=== PATIENT | female | born 1985 | race African-American/Black ===

== ENCOUNTER 2016-04-07 22:39 | Emergency (ER) | payer MEDICAID ==
[2016-04-08] MEDS ORDERED: PREDNISONE 20 MG TABLET PO ONE (02:18)
[2016-04-08] MEDS ORDERED: IPRATROPIUM/ALBUTEROL 0.5-2.5 MG/3 ML AMPUL NEB ONE (02:18)
[2016-04-08] MEDS ORDERED: ALBUTEROL SULFATE HFA (90 MCG/PUFF) 8 GM MDI (1 MDI/ER DISP) IH ONE (03:24)
--- NOTE | 2016-04-08 03:28 | ER Document Report ---
ED General - General Chief Complaint: Sore Throat Stated Complaint: SORE THROAT/HEADACHE TRAVEL OUTSIDE OF THE [place] IN LAST 30 DAYS: No - HPI Patient complains to provider of: sore throat headache cough Notes: Patient coming in with above stated symptoms patient states she was treated for sinus infection before [place] with amoxicillin patient states symptoms are determined sore throat cough nasal congestion and headache. Patient denies any recent travel states multiple sick contacts with various illness and symptoms. Patient denies any other antibiotics. Patient does smoke approximate half pack to 1 pack day. Patient states she is still smoking and smoked prior to arrival to the ER. - Related Data Allergies/Adverse Reactions: No Known Allergies Allergy (Verified 04/08/16 02:22) Past Medical History - Social History Smoking Status: Current Every Day Smoker Cigarette use (# per day): Yes - 1/2 ppd Family History: Reviewed & Not Pertinent Psychiatric Medical History: Reports: Hx Anxiety, Hx Depression - Immunizations Hx Diphtheria, Pertussis, Tetanus Vaccination: Yes Review of Systems - Review of Systems Constitutional: No symptoms reported EENT: Sinus pressure, Throat pain Cardiovascular: No symptoms reported Respiratory: Cough Gastrointestinal: No symptoms reported Genitourinary: No symptoms reported Female Genitourinary: No symptoms reported Musculoskeletal: No symptoms reported Skin: No symptoms reported Hematologic/Lymphatic: No symptoms reported Neurological/Psychological: No symptoms reported -: Yes All other systems reviewed and negative Physical Exam - Vital signs Vitals: Temp Pulse Resp BP Pulse Ox 98.3 F 79 14 135/99 H 99 04/08/16 00:22 04/08/16 00:22 04/08/16 00:22 04/08/16 00:22 04/08/16 00:22 Interpretation: Normal - General General appearance: Appears well, Alert - HEENT Head: Normocephalic, Atraumatic Eyes: Normal Conjunctiva: Normal Cornea: Normal Extraocular movements intact: Yes Eyelashes: Normal Pupils: PERRL Ears: Normal External canal: Normal Tympanic membrane: Normal Sinus: Normal Nasal: Normal Mouth/Lips: Normal Pharynx: Erythema Neck: Normal - Respiratory Respiratory status: No respiratory distress Chest status: Nontender Breath sounds: Wheezing Chest palpation: Normal - Cardiovascular Rhythm: Regular Heart sounds: Normal auscultation Murmur: No - Abdominal Inspection: Normal Distension: No distension Bowel sounds: Normal Tenderness: Nontender Organomegaly: No organomegaly - Back Back: Normal, Nontender - Extremities General upper extremity: Normal inspection, Nontender, Normal color, Normal ROM , Normal temperature General lower extremity: Normal inspection, Nontender, Normal color, Normal ROM , Normal temperature, Normal weight bearing. No: Aiden's sign - Neurological Neuro grossly intact: Yes Cognition: Normal Orientation: AAOx4 [place] Coma Scale Eye Opening: Spontaneous [place] Coma Scale Verbal: Oriented [place] Coma Scale Motor: Obeys Commands [place] Coma Scale Total: 15 Speech: Normal Motor strength normal: LUE, RUE, LLE, RLE Sensory: Normal - Psychological Associated symptoms: Normal affect, Normal mood - Skin Skin Temperature: Warm Skin Moisture: Dry Skin Color: Normal Course - Re-evaluation Re-evalutation: 04/08/16 03:24 Rapid strep is negative. Patient did have wheezing on examination was given a DuoNeb. Breathing improved with improved DuoNeb. Patient will be treated symptomatically patient will be given steroids and albuterol inhaler. Patient will also be given Motrin for her pain. Patient will be discharged home follow- up PCP. - Vital Signs Vital signs: Temp Pulse Resp BP Pulse Ox 98.3 F 79 14 135/99 H 99 04/08/16 00:22 04/08/16 00:22 04/08/16 00:22 04/08/16 00:22 04/08/16 00:22 Discharge - Discharge Clinical Impression: Viral pharyngitis URI (upper respiratory infection) Qualifiers: URI type: unspecified URI Qualified Code(s): J06.9 - Acute upper respiratory infection, unspecified Disposition: HOME, SELF-CARE Instructions: Sore Throat ([facility]), Upper Respiratory Illness ([facility]) Additional Instructions: Take medication as prescribed. Please use the inhaler that we gave you here in ER 2 puffs every 4 hours for the next 5 days. Please stop smoking. Prescriptions: Ibuprofen [Motrin 600 Mg Tablet] 600 mg PO TID #30 tablet Loratadine/Pseudoephedrine Sul [Claritin-D 12 Hour Tablet] 1 each PO BID #20 tab.sr.12h Prednisone [Deltasone 20 mg Tablet] 3 tab PO DAILY 5 Days Forms: Return to Work, Smoking Cessation Education Referrals: LEIGH NICOLE DO [Primary Care Provider] - Follow up in 3-5 days
[2016-04-08 03:46] VITALS: BP 132/84
== END 2016-04-08 03:40 | disposition home or self-care (01) ==
LOC: ER 22:39
DX: J06.9 Acute upper respiratory infection, unspecified (principal); J02.9 Acute pharyngitis, unspecified; R51 Headache; R05 Cough; R09.81 Nasal congestion; F17.210 Nicotine dependence, cigarettes, uncomplicated
CPT/HCPCS: 94640; 99283; 87070; 87880; J7512; J3490; J7620

== ENCOUNTER → 2016-05-22 | Outpatient (CLI) | payer MEDICAID ==
[2016-05-22 11:05] LABS: ABSOLUTE LYMPHOCYTES (AUTO) 1.8 10^3/uL (0.5-4.7); ABSOLUTE MONOCYTES (AUTO) 0.6 10^3/uL (0.1-1.4); ABSOLUTE NEUT (AUTO) 3.6 10^3/uL (1.7-8.2); BASOPHILS % (AUTO) 0.4 % (0-2); EOSINOPHILS % (AUTO) 0.6 % (0-6); HEMATOCRIT 41.7 % (36.0-47.0); HEMOGLOBIN 14.2 g/dL (12.0-15.5); HGB HCT DIFFERENCE 0.9; LYMPHOCYTES % (AUTO) 30.4 % (13-45); MEAN CORPUSCULAR HEMOGLOBIN 30.9 pg (27.0-33.4); MEAN CORPUSCULAR VOLUME 91 fl (80-97); MONOCYTES % (AUTO) 9.5 % (3-13); RED BLOOD COUNT 4.58 10^6/uL (3.72-5.28); RED CELL DISTRIBUTION WIDTH 13.4 % (11.5-14.0); SEGMENTED NEUTROPHILS % (AUTO) 59.1 % (42-78)
[2016-05-22 11:13] LABS: APPEARANCE,URINE CLOUDY; BILIRUBIN,URINE NEGATIVE (NEGATIVE); GLUCOSE, URINE NEGATIVE (NEGATIVE); KETONES,URINE 20 mg/dL (NEGATIVE); LEUKOCYTE ESTERASE,URINE LARGE (NEGATIVE); NITRITE,URINE NEGATIVE (NEGATIVE); PROTEIN,URINE 30 mg/dL (NEGATIVE); URINE SPECIFIC GRAVITY 1.027
[2016-05-22 11:32] LABS: ALANINE AMINOTRANSFERASE 28 U/L (9-52); ALBUMIN 4.8 g/dL (3.5-5.0); ALKALINE PHOSPHATASE 62 U/L (38-126); ANION GAP 13 (5-19); ASPARTATE AMINO TRANSFERASE 28 U/L (14-36); BILIRUBIN,TOTAL 1.3 mg/dL (0.2-1.3); BLOOD UREA NITROGEN 9 mg/dL (7-20); CALCIUM 10.1 mg/dL (8.4-10.2); CARBON DIOXIDE 23 mmol/L (22-30); CHLORIDE 106 mmol/L (98-107); CHOLESTEROL 176.45 mg/dL (0-200); CREATININE RESULT 0.71 mg/dL (0.52-1.25); Direct HDL 56 mg/dL (>40); GLUCOSE 80 mg/dL (75-110); POTASSIUM 4.1 mmol/L (3.6-5.0); SODIUM 141.8 mmol/L (137-145); TOTAL PROTEIN 7.7 g/dL (6.3-8.2); TRIGLYCERIDES 109 mg/dL (<150)
[2016-05-22 11:43] LABS: DIRECT LDL 92 mg/dL (<100)
[2016-05-23 16:39] LABS: HGB A 97.6 % (94.0-98.0); HGB A2 2.4 % (0.7-3.1); HGB SOLUBILITY RESULT Negative (Negative)
== END ==
LOC: OD 09:54
DX: R06.02 Shortness of breath (principal); F32.9 Major depressive disorder, single episode, unspecified; M54.9 Dorsalgia, unspecified; K62.5 Hemorrhage of anus and rectum; M54.5 Low back pain; Z79.899 Other long term (current) drug therapy
CPT/HCPCS: 36415; 71020; 72110; 80053; 80061; 81001; 83020; 83036; 84443; 85025

== ENCOUNTER 2016-07-13 16:12 | Emergency (ER) | payer MEDICAID ==
--- NOTE | 2016-07-13 16:52 | ER Document Report ---
HPI - HPI Patient complains to provider of: finger injury Pain Level: 4 Context: 30 yo female c/o pain to left index finger. pt reports unknown mechanism injury. + ETOH last night. woke up with finger pain, and limited ROM Associated Symptoms: None Exacerbated by: Denies Relieved by: Denies - ROS Systems Reviewed and Negative: Yes All other systems reviewed and negative - REPRODUCTIVE Reproductive: DENIES: : - DERM Skin Color: Normal Past Medical History - General Information source: Patient - Social History Smoking Status: Current Every Day Smoker Frequency of alcohol use: Social Drug Abuse: None Lives with: Family Family History: Reviewed & Not Pertinent Patient has suicidal ideation: No Patient has homicidal ideation: No - Medical History Medical History: Negative Renal/ Medical History: Denies: Hx Peritoneal Dialysis Psychiatric Medical History: Reports: Hx Anxiety, Hx Depression - Immunizations Hx Diphtheria, Pertussis, Tetanus Vaccination: Yes Vertical Provider Document - CONSTITUTIONAL Agree With Documented VS: Yes Exam Limitations: No Limitations General Appearance: WD/WN, No Apparent Distress - INFECTION CONTROL TRAVEL OUTSIDE OF THE [place] IN LAST 30 DAYS: No - HEENT HEENT: Atraumatic, PERRLA - NECK Neck: Normal Inspection, Supple - RESPIRATORY Respiratory: Breath Sounds Normal, No Respiratory Distress O2 Sat by Pulse Oximetry: 97 - CARDIOVASCULAR Cardiovascular: Regular Rate, Regular Rhythm - MUSCULOSKELETAL/EXTREMETIES Musculoskeletal/Extremeties: Tender - right index finger edematous, + point tenderness over PIP Course - Re-evaluation Re-evalutation: 07/13/16 17:30 + posterior dilocation of proximal 2nd interphalangeal joint digital block performed with Marcaine with good results. 17:45 finger reduced without difficulty. splinted for protection and comfort. post reduction film ordered 07/13/16 18:39 post reduction: + successful reduction with mild hyperextension. + avulsion fracture of proximal 2nd phalange splint in place. will have patient follow up with ortho for further treatment. pt is stable for discharge - Vital Signs Vital signs: Temp Pulse Resp BP Pulse Ox 98.4 F 108 H 18 138/79 H 97 07/13/16 16:18 07/13/16 16:18 07/13/16 16:18 07/13/16 16:18 07/13/16 16:18 Procedures - Joint Reduction/Fracture Care Left Proximal Finger 2nd digit Consent obtained: No Conscious sedation: No Post-procedure NV exam: Yes Discharge - Discharge Clinical Impression: Avulsion fracture Dislocated finger Qualifiers: Encounter type: initial encounter Qualified Code(s): S63.259A - Unspecified dislocation of unspecified finger, initial encounter Condition: Stable Disposition: HOME, SELF-CARE Instructions: Finger Dislocation ([facility]), Ibuprofen (General) ([facility]), Ice & Elevation ([facility]), Temporary Splint ([facility]), Oral Narcotic Medication ([facility]), Avulsion Fracture ([facility]) Additional Instructions: Your finger was dislocated. It was succussfully reduced, but you also have 2 avulsion fractures wear splint until seen by orthopedics ice/elevate finger as much as possible pain med as needed Prescriptions: Ibuprofen [Motrin 800 Mg Tablet] 800 mg PO Q6H #20 tablet Oxycodone HCl/Acetaminophen [Percocet 5-325 mg Tablet] 1 tab PO Q4H PRN #15 tablet PRN Reason: Tramadol HCl [Ultram 50 mg Tablet] 50 mg PO ASDIR PRN #20 tablet PRN Reason: Referrals: CHERY ZAMARRIPA MD [ACTIVE STAFF] - Follow up as needed
[2016-07-13] MEDS ORDERED: BUPIVACAINE HCL 0.5 % INJ/PF 30 ML SDV INJ ONE (16:58)
[2016-07-13 19:10] VITALS: BP 130/72
== END 2016-07-13 19:10 | disposition home or self-care (01) ==
LOC: ER 16:12
PROC: 0PSVXZZ Reposition Left Finger Phalanx, External Approach (ICD-10-PCS; principal; 2016-07-13)
DX: S62.621A Displaced fracture of middle phalanx of left index finger, initial encounter for closed fracture (principal); S62.611A Displaced fracture of proximal phalanx of left index finger, initial encounter for closed fracture; X58.XXXA Exposure to other specified factors, initial encounter; F17.200 Nicotine dependence, unspecified, uncomplicated
CPT/HCPCS: 99283

== ENCOUNTER 2018-05-26 09:29 | Emergency (ER) | payer MEDICAID ==
[2018-05-26] MEDS ORDERED: ACETAMINOPHEN 325 MG TABLET PO ONE (10:23)
--- NOTE | 2018-05-26 10:30 | ER Document Report ---
ED ENT - General Chief Complaint: Sinus Congestion Stated Complaint: HEADACHE Time Seen by Provider: 05/26/18 10:15 Mode of Arrival: Ambulatory Information source: Patient Notes: 32-year-old female presents to ED for complaint of cough cold congestion sinus drainage and sore throat since Thursday. She states she had a fever Thursday and Thursday but not today. Patient states she has been taken DayQuil and Mucinex with no relief of symptoms. 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 Patient is alert oriented respirations regular and unlabored speaking in full sentences walks with a even steady gait. TRAVEL OUTSIDE OF THE [place] IN LAST 30 DAYS: No - HPI Patient complains to provider of: Nose problem, Throat problem Onset: Last week Onset/Duration: Gradual Quality of pain: Sharp Severity: Moderate Pain Level: 3 Context: Recent Illness Location of pain: Nose, Sinus, Throat Associated symptoms: Congestion, Cough, Fever, Runny nose, Sinus pain, Sinus drainage, Sore throat Similar symptoms previously: Yes Recently seen / treated by doctor: No - Related Data Allergies/Adverse Reactions: No Known Allergies Allergy (Verified 05/26/18 09:29) Past Medical History - General Information source: Patient - Social History Smoking Status: Current Every Day Smoker Cigarette use (# per day): Yes - 7-10 cigarettes a day Chew tobacco use (# tins/day): No Smoking Education Provided: Yes - 4 minutes Frequency of alcohol use: Social - Weekend Drug Abuse: Marijuana 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 Lives with: Family - Children Family History: Reviewed & Not Pertinent Patient has suicidal ideation: No Patient has homicidal ideation: No - Past Medical History Cardiac Medical History: Reports: Hx Hypertension Pulmonary Medical History: Reports: None EENT Medical History: Reports: None Neurological Medical History: Reports: None Endocrine Medical History: Reports: None Renal/ Medical History: Reports: None Malignancy Medical History: Reports: None GI Medical History: Reports: None Musculoskeletal Medical History: Reports None Skin Medical History: Reports None Psychiatric Medical History: Reports: Hx Anxiety, Hx Depression Traumatic Medical History: Reports: None Infectious Medical History: Reports: None Surgical Hx: Negative Past Surgical History: Reports: None - Immunizations Immunizations up to date: Yes Hx Diphtheria, Pertussis, Tetanus Vaccination: Yes Review of Systems - Review of Systems Constitutional: No symptoms reported, Fever, Recent illness EENT: Nose discharge, Sinus pressure, Sinus discharge, Throat pain Cardiovascular: No symptoms reported Respiratory: Cough Gastrointestinal: No symptoms reported Genitourinary: No symptoms reported Female Genitourinary: No symptoms reported Musculoskeletal: No symptoms reported Skin: No symptoms reported Hematologic/Lymphatic: No symptoms reported Neurological/Psychological: No symptoms reported -: Yes All other systems reviewed and negative Physical Exam - Vital signs Vitals: Temp Pulse Resp BP Pulse Ox 98.8 F 95 16 138/90 H 99 05/26/18 09:43 05/26/18 09:43 05/26/18 09:43 05/26/18 09:43 05/26/18 09:43 Interpretation: Normal - General General appearance: Appears well, Alert - HEENT Head: Normocephalic, Atraumatic Eyes: Normal Pupils: PERRL Ears: Normal External canal: Normal Tympanic membrane: Normal Sinus: Normal Nasal: Purulent discharge, Swelling Mouth/Lips: Normal Mucous membranes: Normal Pharynx: Erythema, Post nasal drainage. No: Exudate, Tonsillar hypertrophy Neck: Normal - Respiratory Respiratory status: No respiratory distress Chest status: Nontender Breath sounds: Normal Chest palpation: Normal - Cardiovascular Rhythm: Regular Heart sounds: Normal auscultation Murmur: No - Abdominal Inspection: Normal Distension: No distension Bowel sounds: Normal Tenderness: Nontender Organomegaly: No organomegaly - Back Back: Normal, Nontender - Extremities General upper extremity: Normal inspection, Nontender, Normal color, Normal ROM, Normal temperature General lower extremity: Normal inspection, Nontender, Normal color, Normal ROM, Normal temperature, Normal weight bearing. No: Aiden's sign - Neurological Neuro grossly intact: Yes Cognition: Normal Orientation: AAOx4 [place] Coma Scale Eye Opening: Spontaneous [place] Coma Scale Verbal: Oriented [place] Coma Scale Motor: Obeys Commands [place] Coma Scale Total: 15 Speech: Normal Motor strength normal: LUE, RUE, LLE, RLE Sensory: Normal - Psychological Associated symptoms: Normal affect, Normal mood - Skin Skin Temperature: Warm Skin Moisture: Dry Skin Color: Normal Course - Vital Signs Vital signs: Temp Pulse Resp BP Pulse Ox 98.5 F 75 16 144/94 H 100 05/26/18 11:42 05/26/18 11:42 05/26/18 11:42 05/26/18 11:42 05/26/18 11:42 Discharge - Discharge Clinical Impression: Sore throat (viral) URI (upper respiratory infection) Qualifiers: URI type: unspecified viral URI Qualified Code(s): J06.9 - Acute upper respiratory infection, unspecified Condition: Stable Disposition: HOME, SELF-CARE Instructions: Family Physicians / Practices Additional Instructions: SORE THROAT: Sore throats may be caused by viruses, bacteria, or fungi. Most are due to a virus, and must get better on their own. Bacterial sore throats, particularly those due to "strep," need treatment with antibiotics. If an antibiotic is prescribed, be sure to take the medication for a full 10 days. Failure to take the antibiotic can result in complications such as rheumatic fever. Sometimes, an injection of antibiotics is given instead of pills or liquid. This single "shot" is equal in effectiveness to the oral medication. To relieve symptoms, take acetaminophen for pain. Sip clear liquids frequently, or eat popsicles or ice chips. Anesthetic sprays or lozenges may help. Make sure the air in the room is not too dry. Avoid using decongestants or antihistamines. Call the doctor if there is no improvement in two days, or if you have difficulty breathing, increasing throat pain, high fever, rash, or frequent vomiting. UPPER RESPIRATORY ILLNESS: You have a viral infection of the respiratory passages -- a "cold." This common infection causes nasal congestion, drainage, and often sore throat and cough. It is highly contagious. The disease usually lasts about 10 to 14 days. There is no "cure" for the viral infection -- it must run its course. If there is a complication, such as bacterial infection in the nose, sinuses, middle ear, or bronchial tubes, antibiotics may be required. The antibiotics won't affect the virus. Drink plenty of fluids. A humidifier may help. An expectorant medication or decongestant may make you more comfortable. Use acetaminophen or ibuprofen for fever or aches. See the doctor if fever persists over two days, if there is any significant worsening of your symptoms, or if you simply fail to improve as expected. SMOKING: If you smoke, you should stop smoking. The tar and chemicals in cigarette smoke are harmful. Smoking has been shown to cause: emphysema chronic bronchitis lung cancer mouth and throat cancer stomach and pancreas cancer premature aging defects In addition, smoking increases ear and lung infections in children of smokers. Acbo-baa-wldvqzz Flonase spray may help you with decrease the nasal congestion and drainage and decrease your sore throat. Chloraseptic spray can help with numbing your throat while you get over the congestion. You can also use salt and soda gargles which will decrease the nasal drainage. Coricidin HB will help with your cough cold congestion symptoms without elevate your blood pressure Salt and soda solution 1 quart of water 1 tablespoon of salt 1 teaspoon of baking soda Mixed 3 ingredients together and boil for 1 minute Placed in a covered quart jar Use 1/2 ounce of cold solution to gargle 3 times a day FOLLOW-UP CARE: If you have been referred to a physician for follow-up care, call the physicians office for an appointment as you were instructed or within the next two days. If you experience worsening or a significant change in your symptoms, notify the physician immediately or return to the Emergency Department at any time for re-evaluation. Forms: Elevated Blood Pressure, Smoking Cessation Education, Return to Work
[2018-05-26 11:44] VITALS: BP 144/94
== END 2018-05-26 11:45 | disposition home or self-care (01) ==
LOC: ER 09:29
DX: J02.8 Acute pharyngitis due to other specified organisms (principal); B97.89 Other viral agents as the cause of diseases classified elsewhere; R09.81 Nasal congestion; R05 Cough; R09.89 Other specified symptoms and signs involving the circulatory and respiratory systems; R09.82 Postnasal drip; I10 Essential (primary) hypertension; F12.10 Cannabis abuse, uncomplicated; F17.210 Nicotine dependence, cigarettes, uncomplicated; Z71.6 Tobacco abuse counseling
CPT/HCPCS: 99283; 87070; 87880; J3490

== ENCOUNTER 2018-08-11 07:39 | Emergency (ER) | payer MEDICAID ==
[2018-08-11] MEDS ORDERED: DEXAMETHASONE SOD PHOS INJ 10 MG/1 ML VIAL IM ONE (09:14)
[2018-08-11] MEDS ORDERED: ACETAMINOPHEN 325 MG TABLET PO ONE (09:15)
--- NOTE | 2018-08-11 10:10 | ER Document Report ---
HPI - HPI Patient complains to provider of: sore throat Time Seen by Provider: 08/11/18 08:56 Pain Level: 2 Context: 32-year-old female presents for sore throat and swollen lymph nodes. She was seen here in early May for similar symptoms and had a negative strep and a negative culture. She presents complaining of difficulty swallowing, sore throat, fever T-max 102 yesterday but afebrile today, headache, malaise. She denies nausea or vomiting, abdominal pain, neck stiffness, earache, blurred vision, or any other symptoms. - EENT EENT: REPORTS: Sore Throat - REPRODUCTIVE Reproductive: DENIES: : Past Medical History - Social History Smoking Status: Current Every Day Smoker Chew tobacco use (# tins/day): No Frequency of alcohol use: Occasional Drug Abuse: None Family History: Reviewed & Not Pertinent Patient has suicidal ideation: No Patient has homicidal ideation: No - Past Medical History Cardiac Medical History: Reports: Hx Hypertension Renal/ Medical History: Denies: Hx Peritoneal Dialysis Psychiatric Medical History: Reports: Hx Anxiety, Hx Depression - Immunizations Immunizations up to date: Yes Hx Diphtheria, Pertussis, Tetanus Vaccination: Yes Vertical Provider Document - CONSTITUTIONAL Notes: PHYSICAL EXAMINATION: Reviewed vital signs and charting by RN GENERAL: Alert, interacts well. No acute distress. HEAD: Normocephalic, atraumatic. EYES: Pupils equal and round. Extraocular movements intact. ENT: Oral mucosa moist, tongue midline. 2+ tonsillar hypertrophy, significant bilateral exudate in the pharynx and tonsils, significant erythema bilateral tonsils and pillars NECK: Full range of motion. Supple. Trachea midline. Bilateral cervical lymphadenopathy LUNGS: Clear to auscultation bilaterally, no wheezes, rales, or rhonchi. No respiratory distress. HEART: Regular rate and rhythm. No murmur ABDOMEN: soft, non-tender. Non-distended. Bowel sounds present. no McBurney's point tenderness, no Clinton sign. EXTREMITIES: Moves all 4 extremities spontaneously. No edema, No cyanosis. Normal distal neurovascular exam BACK: No CVAT NEUROLOGIC: Oriented and appropriate. Normal speech. PSYCH: Normal affect, normal mood. SKIN: Warm, dry, normal turgor. No rashes or lesions noted. - INFECTION CONTROL TRAVEL OUTSIDE OF THE [place] IN LAST 30 DAYS: No Course - Re-evaluation Re-evalutation: 08/11/18 10:05 Overall well-appearing but presents with sore throat similar to presentation in May. Strep negative. Patient with significant tonsillar erythema, hypertrophy, and exudate. Given her dexamethasone and Tylenol. Given her prescription for Magic mouthwash. Patient does not have a primary doctor. 08/11/18 10:11 I talked with patient and because she does not have good follow-up and the strep was negative but culture will be pending I will treat her with penicillin G1 200,000 units 1 time. She does not have allergies to penicillin and she is okay with this at this time. - Vital Signs Vital signs: Temp Pulse Resp BP Pulse Ox 99.2 F 99 14 127/85 H 98 08/11/18 07:44 08/11/18 07:44 08/11/18 07:44 08/11/18 07:44 08/11/18 07:44 Discharge - Discharge Clinical Impression: Pharyngitis Qualifiers: Pharyngitis/tonsillitis etiology: unspecified etiology Qualified Code(s): J02.9 - Acute pharyngitis, unspecified Condition: Good Disposition: HOME, SELF-CARE Instructions: Sore Throat ([facility]) Additional Instructions: You were seen in the department for pharyngitis. Although your strep test was negative it will be sent for culture and it is unclear why you have this with you with penicillin. You received a shot. You can expect to be sore for a few days. If you develop hives, shortness of breath, itching, or any other concerning symptoms that is sign of an allergic reaction he should return to the emergency department. You also received a shot of steroid that will help with the inflammation. You can expect to start feeling better over the next 12 to 24 hours. If you do your airway starts to close up, you have difficulty breathing or respiratory distress, intractable nausea or vomiting, severe abdominal pain, bloody vomiting or bloody diarrhea, please immediately return to the emergency department. Prescriptions: Nystatin/Dexameth/Diphen [Magic Mouthwash ([facility] Formula) Susp] 5 ml PO QID #120 ml Referrals: LOCALMD,NO [Primary Care Provider] - Follow up as needed
[2018-08-11] MEDS ORDERED: PENICILLIN G BENZATHINE 1.2 MILLION UNIT/2 ML DISP.SYRIN IM ONE (10:13)
[2018-08-11 11:10] VITALS: BP 130/85
== END 2018-08-11 11:01 | disposition home or self-care (01) ==
LOC: ER 07:39
DX: J02.9 Acute pharyngitis, unspecified (principal); J35.1 Hypertrophy of tonsils; R59.0 Localized enlarged lymph nodes; R13.10 Dysphagia, unspecified; R51 Headache; R53.81 Other malaise; F17.200 Nicotine dependence, unspecified, uncomplicated; I10 Essential (primary) hypertension
CPT/HCPCS: 99283; 96372; 87070; 87880; 87077; J3490; J0561; J1100

== ENCOUNTER → 2018-10-20 | Outpatient (CLI) | payer MEDICAID ==
[2018-10-20 08:25] LABS: ABSOLUTE EOSINOPHILS # (AUTO) 0.1 10^3/uL (0.0-0.6); ABSOLUTE LYMPHOCYTES (AUTO) 2.2 10^3/uL (0.5-4.7); ABSOLUTE MONOCYTES (AUTO) 0.6 10^3/uL (0.1-1.4); ABSOLUTE NEUT (AUTO) 3.7 10^3/uL (1.7-8.2); BASOPHILS % (AUTO) 0.3 % (0-2); EOSINOPHILS % (AUTO) 0.8 % (0-6); HEMATOCRIT 37.3 % (36.0-47.0); HEMOGLOBIN 12.8 g/dL (12.0-15.5); LYMPHOCYTES % (AUTO) 33.8 % (13-45); MEAN CORPUSCULAR HEMOGLOBIN 30.2 pg (27.0-33.4); MEAN CORPUSCULAR HGB CONC 34.4 g/dL (32.0-36.0); MEAN CORPUSCULAR VOLUME 88 fl (80-97); MONOCYTES % (AUTO) 8.7 % (3-13); PLATELET COUNT 216 10^3/uL (150-450); RED BLOOD COUNT 4.25 10^6/uL (3.72-5.28); RED CELL DISTRIBUTION WIDTH 13.4 % (11.5-14.0); SEGMENTED NEUTROPHILS % (AUTO) 56.4 % (42-78); TOTAL CELLS COUNTED % (AUTO) 100 %; WHITE BLOOD COUNT 6.6 10^3/uL (4.0-10.5)
[2018-10-20 08:26] LABS: ABSOLUTE EOSINOPHILS # (AUTO) 0.1 10^3/uL (0.0-0.6); ABSOLUTE LYMPHOCYTES (AUTO) 2.2 10^3/uL (0.5-4.7); ABSOLUTE MONOCYTES (AUTO) 0.6 10^3/uL (0.1-1.4); ABSOLUTE NEUT (AUTO) 3.7 10^3/uL (1.7-8.2); BASOPHILS % (AUTO) 0.3 % (0-2); EOSINOPHILS % (AUTO) 0.8 % (0-6); HEMATOCRIT 37.3 % (36.0-47.0); HEMOGLOBIN 12.8 g/dL (12.0-15.5); LYMPHOCYTES % (AUTO) 33.8 % (13-45); MEAN CORPUSCULAR HEMOGLOBIN 30.2 pg (27.0-33.4); MEAN CORPUSCULAR HGB CONC 34.4 g/dL (32.0-36.0); MEAN CORPUSCULAR VOLUME 88 fl (80-97); MONOCYTES % (AUTO) 8.7 % (3-13); PLATELET COUNT 216 10^3/uL (150-450); RED BLOOD COUNT 4.25 10^6/uL (3.72-5.28); RED CELL DISTRIBUTION WIDTH 13.4 % (11.5-14.0); SEGMENTED NEUTROPHILS % (AUTO) 56.4 % (42-78); TOTAL CELLS COUNTED % (AUTO) 100 %; WHITE BLOOD COUNT 6.6 10^3/uL (4.0-10.5)
[2018-10-20 09:10] LABS: FREE T4 (FREE THYROXINE) 0.92 ng/dL (0.78-2.19)
[2018-10-20 09:57] LABS: ALANINE AMINOTRANSFERASE 19 U/L (9-52); ALBUMIN 3.9 g/dL (3.5-5.0); ALKALINE PHOSPHATASE 46 U/L (38-126); ANION GAP 7 (5-19); ASPARTATE AMINO TRANSFERASE 24 U/L (14-36); BILIRUBIN,DIRECT 0.2 mg/dL (0.0-0.4); BILIRUBIN,TOTAL 0.4 mg/dL (0.2-1.3); BLOOD UREA NITROGEN 7 mg/dL (7-20); CALCIUM 9.9 mg/dL (8.4-10.2); CARBON DIOXIDE 22 mmol/L (22-30); CHLORIDE 107 mmol/L (98-107); CHOLESTEROL 174.57 mg/dL (0-200); GLUCOSE 81 mg/dL (75-110); POTASSIUM 4.1 mmol/L (3.6-5.0); SODIUM 136.2 mmol/L (137-145); TOTAL PROTEIN 6.6 g/dL (6.3-8.2); TRIGLYCERIDES 132 mg/dL (<150)
[2018-10-20 10:02] LABS: THYROID STIMULATING HORMONE 1.73 uIU/mL (0.47-4.68)
[2018-10-20 10:07] LABS: DIRECT LDL 92 mg/dL (<100)
[2018-10-20 10:13] LABS: BLOOD UREA NITROGEN 7 mg/dL (7-20); CALCIUM 9.9 mg/dL (8.4-10.2); GLUCOSE 81 mg/dL (75-110)
[2018-10-20 10:14] LABS: ALANINE AMINOTRANSFERASE 19 U/L (9-52); ALBUMIN 3.9 g/dL (3.5-5.0); ALKALINE PHOSPHATASE 46 U/L (38-126); ANION GAP 7 (5-19); ASPARTATE AMINO TRANSFERASE 24 U/L (14-36); BILIRUBIN,DIRECT 0.2 mg/dL (0.0-0.4); BILIRUBIN,TOTAL 0.4 mg/dL (0.2-1.3); CARBON DIOXIDE 22 mmol/L (22-30); CHLORIDE 107 mmol/L (98-107); CHOLESTEROL 174.57 mg/dL (0-200); DIRECT LDL 92 mg/dL (<100); POTASSIUM 4.1 mmol/L (3.6-5.0); SODIUM 136.2 mmol/L (137-145); TOTAL PROTEIN 6.6 g/dL (6.3-8.2); TRIGLYCERIDES 132 mg/dL (<150)
== END ==
LOC: OD 07:29
PROVIDERS: ATTEND Internal Medicine
DX: R53.83 Other fatigue (principal); F31.9 Bipolar disorder, unspecified; Z79.899 Other long term (current) drug therapy
CPT/HCPCS: 36415; 80053; 80061; 82465; 83036; 83721; 84439; 84443; 84478; 85025; 87070

== ENCOUNTER 2019-03-01 09:50 | Outpatient (CLI) | payer MEDICAID ==
[2019-03-01 10:23] LABS: APPEARANCE,URINE CLOUDY; BILIRUBIN,URINE SMALL (NEGATIVE); COLOR,URINE AMBER; GLUCOSE, URINE NEGATIVE (NEGATIVE); KETONES,URINE TRACE mg/dL (NEGATIVE); LEUKOCYTE ESTERASE,URINE NEGATIVE (NEGATIVE); NITRITE,URINE NEGATIVE (NEGATIVE); PROTEIN,URINE 100 mg/dL (NEGATIVE); URINE SPECIFIC GRAVITY 1.034
[2019-03-01] MEDS ORDERED: PROMETHAZINE HCL INJ 25 MG/1 ML VIAL IV ONE (10:38)
[2019-03-01] MEDS ORDERED: PROMETHAZINE HCL INJ 25 MG/1 ML VIAL ONE (10:40)
[2019-03-01 10:41] LABS: URINE AMPHETAMINES SCREEN NEGATIVE; URINE BARBITURATES SCREEN NEGATIVE; URINE BENZODIAZEPINES SCREEN NEGATIVE; URINE COCAINE SCREEN NEGATIVE; URINE PHENCYCLIDINE SCREEN NEGATIVE
[2019-03-01] MEDS ORDERED: RINGERS SOLUTION,LACTATED 1,000 ML IV PRN (10:44)
[2019-03-01 10:47] LABS: BACTERIA (WET MOUNT) 3+ BACTERIA SEEN; EPITHELIALS (WET MOUNT) 3+ EPITHELIALS SEEN; T.VAGINALIS (WET MOUNT) NO TRICHOMONAS SEEN; WBCS (WET MOUNT) 3+ WBCS SEEN; YEAST (WET MOUNT) NO YEAST SEEN
[2019-03-01 10:52] LABS: URINE METHADONE SCREEN NEGATIVE
[2019-03-01 10:59] LABS: URINE MARIJUANA (THC) SCREEN UNCONFIRMED POSITIVE
[2019-03-01 12:10] LABS: CHLAM PCR NOT DETECTED (NOT DETECT)
== END 2019-03-01 12:38 | disposition home or self-care (01) ==
LOC: LC 09:50
PROVIDERS: ATTEND Obstetrics & Gynecology
PROC: 4A1HXCZ Monitoring of Products of Conception, Cardiac Rate, External Approach (ICD-10-PCS; principal; 2019-03-01)
DX: O21.2 Late vomiting of pregnancy (principal); O26.892 Other specified pregnancy related conditions, second trimester; E86.0 Dehydration; Z3A.20 20 weeks gestation of pregnancy
CPT/HCPCS: 87210; 81001; 80307; 87491; 87591; 59899; G0480 ×2; J2550; 80349; 87086

== ENCOUNTER 2019-03-24 10:32 | Outpatient (CLI) | payer MEDICAID ==
[2019-03-24 11:56] LABS: APPEARANCE,URINE CLOUDY; BILIRUBIN,URINE NEGATIVE (NEGATIVE); COLOR,URINE YELLOW; GLUCOSE, URINE NEGATIVE (NEGATIVE); KETONES,URINE NEGATIVE (NEGATIVE); LEUKOCYTE ESTERASE,URINE TRACE (NEGATIVE); NITRITE,URINE NEGATIVE (NEGATIVE); PROTEIN,URINE NEGATIVE (NEGATIVE); URINE SPECIFIC GRAVITY 1.016; UROBILINOGEN,URINE NEGATIVE mg/dL (<2.0)
[2019-03-24 12:17] LABS: URINE AMPHETAMINES SCREEN NEGATIVE; URINE BARBITURATES SCREEN NEGATIVE; URINE BENZODIAZEPINES SCREEN NEGATIVE; URINE COCAINE SCREEN NEGATIVE; URINE METHADONE SCREEN NEGATIVE; URINE PHENCYCLIDINE SCREEN NEGATIVE
[2019-03-24 12:22] LABS: URINE MARIJUANA (THC) SCREEN UNCONFIRMED POSITIVE
== END 2019-03-24 10:38 | disposition home or self-care (01) ==
LOC: LC 10:32
PROVIDERS: ATTEND Obstetrics & Gynecology
PROC: 4A1HXCZ Monitoring of Products of Conception, Cardiac Rate, External Approach (ICD-10-PCS; principal; 2019-03-24)
DX: O60.03 Preterm labor without delivery, third trimester (principal); O26.893 Other specified pregnancy related conditions, third trimester; E86.0 Dehydration; Z3A.33 33 weeks gestation of pregnancy
CPT/HCPCS: 59025; 80307; 81001; 94760

== ENCOUNTER 2019-04-01 15:36 | Outpatient (CLI) | payer MEDICAID ==
--- NOTE | 2019-04-01 17:14 | Non Stress Test Report ---
Non Stress Test Datetime Report Generated by CPN: 04/01/2019 17:14 DEMOGRAPHIC Test Number: 2 EGA NST: 34.3 EGA NST: 33.2 INDICATION Indication for Study (NST) Other: repeat NST non reactive in office Indication for Study (NST) Other: Contractions VITAL SIGNS Temperature - NST: 98.0 Pulse - NST: 97 RESP - NST: 18 NBPSYS NST: 102 NBPDIA NST: 60 MONITORING Monitor Explained: Monitor Explained; Test Explained; Patient Verbalized Understanding Monitor Explained: Monitor Explained; Test Explained; Patient Verbalized Understanding Time on Monitor: 04/01/2019 16:21 Time on Monitor: 03/24/2019 10:52 Time off Monitor: 04/01/2019 17:00 Time off Monitor: 03/24/2019 11:34 NST Duration: 39 NST Duration: 42 NST INTERVENTIONS NST Interventions: PO Hydration NST Interventions: PO Hydration Physician Notified NST: Dr Nazarioe Physician Notified NST: J Cottrell CNM BABY A: [id number] BABY A Movement : Present Movement : Present Contraction Frequency : occasional Contraction Frequency : occasional FHR Baseline : 140 FHR Baseline : 135 Accelerations : 15X15 Accelerations : 10X10 Decelerations : None Decelerations : None Variability : Moderate 6-25bpm Variability : Moderate 6-25bpm NST Review: Meets Criteria for Reactive NST NST Review: Meets Criteria for Reactive NST NST Review and Verified By : SERENA Rose NST Review and Verified By : Marlin VU NST Results: Reactive NST Results: Reactive NST REPORT Report Trigger: Send Report
== END 2019-04-01 17:05 | disposition home or self-care (01) ==
LOC: LC 15:36
PROVIDERS: ATTEND Obstetrics & Gynecology
PROC: 4A1HXCZ Monitoring of Products of Conception, Cardiac Rate, External Approach (ICD-10-PCS; principal; 2019-04-01)
DX: Z34.93 Encounter for supervision of normal pregnancy, unspecified, third trimester (principal)
CPT/HCPCS: 59025; 94760

== ENCOUNTER 2019-04-12 08:10 | Emergency (ER) | payer MEDICAID ==
--- NOTE | 2019-04-12 09:41 | ER Document Report ---
ED General - General Chief Complaint: Cough Stated Complaint: NOSEBLEEDS,HEADACHE,COUGH Primary Care Provider: ROX LAURENT MD [Primary Care Provider] - Follow up as needed TRAVEL OUTSIDE OF THE [place] IN LAST 30 DAYS: No - HPI Notes: G4, P2 currently 36 weeks has had usual care bleeds but presents today ambulatory to the ED after she had 2 episodes of a right-sided nosebleed each lasting about a few minutes. No history of nosebleeds. Denies severe persistent headache or vision change or passing out or near passing out. No other bleeding no vaginal bleeding. Does have a mild left sided frontal headache is been gradual in onset and that his last few days. Her LACER AND TIER is aware that she is here in the emergency department she is to be seen here for the nosebleed and then they would like to see her today for some abdominal cramping she had no complaint to them about. She tells me that she is not having current abdominal pain or any pain or nausea or vomiting. She has not been having nausea vomiting or feeling lightheaded. She did have a fever she thinks of around 100 a few days ago, and is also experienced a mild and a cough for the past few days. No sick contacts. Pt states she is 36 weeks and is also having lower abdominal pain for the past few weeks and states her OBGYN is aware of pains. Pt is . Pt states she had a "slight fever" of 100 a few days ago. Pt states she was told to be seen at L&D for the fever but was never seen. Pt states she was seen for cough last Thursday at OBGYN and was told to take Delsym and given an inhaler. Pt states she has an OBGYN appointment tomorrow. Pt alert and oriented with NAD noted. Pt breaths even and unlabored with airway patent and intact. - Related Data Allergies/Adverse Reactions: No Known Allergies Allergy (Verified 04/12/19 08:57) Home Medications: Delsym as of right now. Promethazine PRN for nausea Past Medical History - General Information source: Patient - Social History Smoking Status: Current Every Day Smoker Frequency of alcohol use: None Drug Abuse: Marijuana Family History: Reviewed & Not Pertinent Patient has suicidal ideation: No Patient has homicidal ideation: No - Past Medical History Cardiac Medical History: Denies: Hx Hypertension - pt denies Renal/ Medical History: Denies: Hx Peritoneal Dialysis Psychiatric Medical History: Reports: Hx Anxiety, Hx Depression - Immunizations Immunizations up to date: Yes Hx Diphtheria, Pertussis, Tetanus Vaccination: Yes Review of Systems - Review of Systems Constitutional: denies: Chills, Diaphoresis, Malaise EENT: No symptoms reported, See HPI, Nose congestion, Sinus pressure, Sinus discharge. denies: Eye pain, Eye discharge, Blurred vision, Tearing, Double vision, Ear pain, Throat pain, Difficulty swallowing, Throat swelling, Mouth pain, Mouth swelling, Dental problem, Vertigo Cardiovascular: No symptoms reported Respiratory: No symptoms reported Gastrointestinal: No symptoms reported. denies: Diarrhea, Nausea, Vomiting, Constipation Genitourinary: No symptoms reported. denies: Burning, Dysuria, Frequency, Flank pain, Hematuria, Urgency, Retention Female Genitourinary: No symptoms reported. denies: Vaginal discharge, Vaginal bleeding Musculoskeletal: No symptoms reported Skin: No symptoms reported Hematologic/Lymphatic: No symptoms reported Neurological/Psychological: No symptoms reported Physical Exam - Vital signs Vitals: Temp Pulse Resp BP Pulse Ox 98.2 F 94 18 128/83 H 99 04/12/19 08:22 04/12/19 08:22 04/12/19 08:22 04/12/19 08:22 04/12/19 08:22 - General General appearance: Appears well, Alert In distress: None - HEENT Head: Normocephalic, Atraumatic Eyes: Normal. No: Pale conjunctiva, Periorbital edema, Scleral icterus Conjunctiva: No: Injected, Purulent discharge Extraocular movements intact: Yes Pupils: PERRL Nerve palsy: No Ears: Normal External canal: Normal Sinus: Frontal, Tenderness Nasal: Other - Bilaterally anterior middle lower turbinates appear inflamed slightly swollen. On the medial wall of the inferior anterior nasal turbinate of the right nostril is an area appears friable but there is no oozing or other bleeding. No bleeding visible in the oropharynx.. No: Bloody discharge, Epistaxis, Septal hematoma Mouth/Lips: Normal Mucous membranes: Dry Pharynx: Normal. No: Blood in hypopharynx Neck: Normal - Respiratory Respiratory status: No respiratory distress Chest status: Nontender Breath sounds: Normal Chest palpation: Normal - Cardiovascular Rhythm: Regular Heart sounds: Normal auscultation Murmur: No - Abdominal Inspection: Gravid female. No: Wounds Tenderness: Nontender. No: Guarding, Rebound - Back Back: Normal, Nontender - Extremities General upper extremity: Normal inspection, Nontender, Normal color, Normal ROM, Normal temperature General lower extremity: Normal inspection, Nontender, Normal color, Normal ROM, Normal temperature, Normal weight bearing. No: Aiden's sign - Neurological Neuro grossly intact: Yes Cognition: Normal Orientation: AAOx4 Sang Coma Scale Eye Opening: Spontaneous Sang Coma Scale Verbal: Oriented Sang Coma Scale Motor: Obeys Commands Sang Coma Scale Total: 15 Speech: Normal Motor strength normal: LUE, RUE, LLE, RLE Sensory: Normal - Psychological Associated symptoms: Normal affect, Normal mood - Skin Skin Temperature: Warm Skin Moisture: Dry Skin Color: Normal Course - Re-evaluation Re-evalutation: 04/12/19 10:53 Flu test pending expect that to be negative patient appears well is going to labor and delivery for reported abdominal cramping continues to look very well nontoxic vital signs within normal limits for near term.. - Vital Signs Vital signs: Temp Pulse Resp BP Pulse Ox 98.2 F 94 18 128/83 H 99 04/12/19 08:22 04/12/19 08:22 04/12/19 08:22 04/12/19 08:22 04/12/19 08:22 Discharge - Discharge Clinical Impression: Anterior epistaxis, Right-sided nosebleed, Upper respiratory infection with cough and congestion Condition: Good Disposition: HOME, SELF-CARE Additional Instructions: Today in the emergency department your nosebleed had stopped on its own. I cou ld see an area in the front middle inner of the right nostril that looks inflamed and was the site where you are likely bleeding. I think this was from your head cold inflammation along with overall the air being dry. Therefore to prevent further nosebleeds try to make sure he keep the area moist he can use [place] Quincy drops that can be bought [id number]. If you do experience a nosebleed do not put anything into the nose just hold the wings of the nose and press them together towards the center and help for 15 minutes. This should stop the bleeding if it does not stop, continue to hold pressure for 30 minutes, but you can always come to the ER if needed. Prescriptions: Sodium Chloride [[place] Nasal [place] 44 ml Bottle] 1 spray NASL ACHS 14 Days #1 bottle Referrals: ROX LAURENT MD [Primary Care Provider] - Follow up as needed
[2019-04-12 11:11] VITALS: BP 126/72
[2019-04-12 11:26] LABS: A TYPE INFLUENZA AG NEGATIVE (NEGATIVE); B INFLUENZA AG NEGATIVE (NEGATIVE)
== END 2019-04-12 11:20 | disposition home or self-care (01) ==
LOC: ER 08:10
DX: O26.893 Other specified pregnancy related conditions, third trimester (principal); R04.0 Epistaxis; R05 Cough; R51 Headache; R10.30 Lower abdominal pain, unspecified; O99.513 Diseases of the respiratory system complicating pregnancy, third trimester; J06.9 Acute upper respiratory infection, unspecified; O99.333 Smoking (tobacco) complicating pregnancy, third trimester; F17.200 Nicotine dependence, unspecified, uncomplicated; O99.323 Drug use complicating pregnancy, third trimester; F12.10 Cannabis abuse, uncomplicated; Z3A.36 36 weeks gestation of pregnancy
CPT/HCPCS: 87804; 99283

== ENCOUNTER 2019-04-12 09:36 | Outpatient (CLI) | payer MEDICAID ==
[2019-04-12 15:12] LABS: APPEARANCE,URINE SLIGHTLY-CLOUDY; BILIRUBIN,URINE NEGATIVE (NEGATIVE); COLOR,URINE YELLOW; GLUCOSE, URINE NEGATIVE (NEGATIVE); KETONES,URINE TRACE mg/dL (NEGATIVE); LEUKOCYTE ESTERASE,URINE TRACE (NEGATIVE); NITRITE,URINE NEGATIVE (NEGATIVE); PROTEIN,URINE NEGATIVE (NEGATIVE); URINE SPECIFIC GRAVITY 1.021
[2019-04-12 15:25] LABS: URINE AMPHETAMINES SCREEN NEGATIVE; URINE BARBITURATES SCREEN NEGATIVE; URINE BENZODIAZEPINES SCREEN NEGATIVE; URINE COCAINE SCREEN NEGATIVE; URINE METHADONE SCREEN NEGATIVE; URINE PHENCYCLIDINE SCREEN NEGATIVE
[2019-04-12 15:28] LABS: URINE MARIJUANA (THC) SCREEN UNCONFIRMED POSITIVE
== END 2019-04-12 12:46 | disposition home or self-care (01) ==
LOC: LC 09:36
PROVIDERS: ATTEND Obstetrics & Gynecology
PROC: 4A1HXCZ Monitoring of Products of Conception, Cardiac Rate, External Approach (ICD-10-PCS; principal; 2019-04-12)
DX: O26.893 Other specified pregnancy related conditions, third trimester (principal); R10.2 Pelvic and perineal pain; Z3A.35 35 weeks gestation of pregnancy
CPT/HCPCS: 59025; 81001; 80307; G0480 ×2; 80349

== ENCOUNTER 2019-04-25 06:32 | Inpatient (IN) | payer MEDICAID ==
--- NOTE | 2019-04-25 06:40 | Non Stress Test Report ---
Non Stress Test Datetime Report Generated by CPN: 04/25/2019 06:40 DEMOGRAPHIC EGA NST: 36.0 INDICATION Indication for Study (NST) Other: labor check VITAL SIGNS Temperature - NST: 98.0 Pulse - NST: 74 RESP - NST: 18 NBPSYS NST: 128 NBPDIA NST: 84 MONITORING Monitor Explained: Monitor Explained; Test Explained; Patient Verbalized Understanding Time on Monitor: 04/12/2019 11:40 Time off Monitor: 04/12/2019 12:37 NST Duration: 57 NST INTERVENTIONS NST Interventions: PO Hydration; Reposition Patient Physician Notified NST: DR LEE BABY A: [id number] BABY A Movement : Present Contraction Frequency : 2-5 FHR Baseline : 130 Accelerations : 15X15 Decelerations : None Variability : Moderate 6-25bpm NST Review: Meets Criteria for Reactive NST NST Review and Verified By : ASHOK KERN RN NST Results: Reactive NST REPORT Report Trigger: Send Report
[2019-04-25] MEDS ORDERED: RINGERS SOLUTION,LACTATED 1,000 ML IV PRN (06:47)
[2019-04-25] MEDS ORDERED: OXYTOCIN/NORMAL SALINE 20 UNIT/1,000 ML RTUINJ ONE (06:59)
[2019-04-25] MEDS ORDERED: MISOPROSTOL 0.2 MG TABLET ONE (06:59)
[2019-04-25] MEDS ORDERED: OXYTOCIN 10 UNIT/ML VIAL ONE (06:59)
[2019-04-25] MEDS ORDERED: LIDOCAINE 1% INJ-PF (10 MG/ML) 30 ML SDV ONE (06:59)
[2019-04-25 07:12] LABS: ABSOLUTE BASOPHILS # (AUTO) 0.1 10^3/uL (0.0-0.2); ABSOLUTE EOSINOPHILS # (AUTO) 0.1 10^3/uL (0.0-0.6); ABSOLUTE LYMPHOCYTES (AUTO) 3.8 10^3/uL (0.5-4.7); ABSOLUTE MONOCYTES (AUTO) 1.1 10^3/uL (0.1-1.4); ABSOLUTE NEUT (AUTO) 7.5 10^3/uL (1.7-8.2); BASOPHILS % (AUTO) 0.4 % (0-2); EOSINOPHILS % (AUTO) 0.7 % (0-6); HEMATOCRIT 34.7 % (36.0-47.0); HEMOGLOBIN 11.7 g/dL (12.0-15.5); LYMPHOCYTES % (AUTO) 30.4 % (13-45); MEAN CORPUSCULAR HEMOGLOBIN 30.3 pg (27.0-33.4); MEAN CORPUSCULAR HGB CONC 33.8 g/dL (32.0-36.0); MEAN CORPUSCULAR VOLUME 90 fl (80-97); MONOCYTES % (AUTO) 8.9 % (3-13); PLATELET COUNT 271 10^3/uL (150-450); RED BLOOD COUNT 3.88 10^6/uL (3.72-5.28); RED CELL DISTRIBUTION WIDTH 14.1 % (11.5-14.0); SEGMENTED NEUTROPHILS % (AUTO) 59.6 % (42-78); TOTAL CELLS COUNTED % (AUTO) 100 %; WHITE BLOOD COUNT 12.7 10^3/uL (4.0-10.5)
[2019-04-25 07:32] LABS: APPEARANCE,URINE CLOUDY; BILIRUBIN,URINE NEGATIVE (NEGATIVE); COLOR,URINE YELLOW; GLUCOSE, URINE NEGATIVE (NEGATIVE); KETONES,URINE NEGATIVE (NEGATIVE); LEUKOCYTE ESTERASE,URINE NEGATIVE (NEGATIVE); NITRITE,URINE NEGATIVE (NEGATIVE); PROTEIN,URINE 100 mg/dL (NEGATIVE); URINE SPECIFIC GRAVITY 1.016; UROBILINOGEN,URINE NEGATIVE mg/dL (<2.0)
[2019-04-25] MEDS ORDERED: DIPH/PERTUSS(ACELL)/TETANUS VAC/PF 0.5 ML SYR (>=10YO) IM PRN (07:32)
[2019-04-25] MEDS ORDERED: PSEUDOEPHEDRINE HCL 30 MG TABLET PO PRN (07:32)
[2019-04-25] MEDS ORDERED: DIBUCAINE 1% OINTMENT 28 GM TP PRN (07:32)
[2019-04-25] MEDS ORDERED: ACETAMINOPHEN WITH CODEINE #3 TABLET PO PRN ×2 (07:32)
[2019-04-25] MEDS ORDERED: BENZOCAINE/MENTHOL AEROSOL SPRAY 56 ML TOP PRN (07:32)
[2019-04-25] MEDS ORDERED: MEASLES,MUMPS&RUBELLA VACC/PF 0.5 ML VIAL SUBCUT PRN (07:32)
[2019-04-25] MEDS ORDERED: MAGNESIUM HYDROXIDE SUSP 30 ML UDCUP PO PRN (07:32)
[2019-04-25] MEDS ORDERED: PROMETHAZINE HCL 25 MG TABLET PO PRN (07:32)
[2019-04-25] MEDS ORDERED: PROMETHAZINE HCL INJ 25 MG/1 ML VIAL IV PRN (07:32)
[2019-04-25] MEDS ORDERED: DIPHENHYDRAMINE HCL 25 MG CAPSULE PO PRN (07:32)
[2019-04-25] MEDS ORDERED: OXYTOCIN/NORMAL SALINE 20 UNIT/1,000 ML RTUINJ IV PRN (07:32)
[2019-04-25] MEDS ORDERED: ZOLPIDEM TARTRATE 5 MG TABLET PO PRN (07:32)
[2019-04-25] MEDS ORDERED: NA PHOS,M-B/NA PHOS,DI-BA (ADULT) 133 ML ENEMA PR PRN (07:32)
[2019-04-25] MEDS ORDERED: PROMETHAZINE HCL 25 MG SUPP.RECT PR PRN (07:32)
[2019-04-25] MEDS ORDERED: ACETAMINOPHEN 650 MG SUPP.RECT PR PRN (07:32)
[2019-04-25] MEDS ORDERED: GLYCERIN/WITCH HAZEL LEAF 1 EACH MED..WIPE TP PRN (07:32)
--- NOTE | 2019-04-25 07:36 | Admission Physical ---
Datetime Report Generated by CPN: 04/25/2019 07:35 CURRENT ADMISSION Chief Complaint: Uterine Contractions Indication for Induction: Not Applicable Admit Impression : Term, Intrauterine Admit Plan: Admit to Unit; Initiate Labor Protocol ALLERGIES Medication Allergies: No Medication Allergies: No Known Allergies (04/12/2019) Latex: Latex Allergies Food Allergies: None Environmental Allergies: None OBSTETRICAL HISTORY EDC: 05/10/2019 00:00 : 4 Para: 2 Term: 2 : 0 SAB: 0 IAB: 1 Ectopic: 0 Livin Cesareans: 0 VBACs: 0 Multiple Births: 0 Gestational Diabetes: Yes Rh Sensitization: No Incompetent Cervix: No CRYSTAL: No Infertility: No ART Treatment: No Uterine Anomaly: No IUGR: No Hx Previous C/S: No Macrosomia: No Hx Loss/Stillborn: No PIH: No Hx : No Placenta Previa/Abruption: No Depression/PP Depression: Yes PTL/PROM: No Post Hemorrhage: No Current Procedures: Ultrasound Obstetrical History Comments: G1- EAB G2- 2007 40 weeks G3- 2015 40 weeks G4- current, GDM- diet controlled SEE RECORDS Alcohol: No Marijuana : Yes Cocaine: No Other Illicit Drugs: No Cigarettes: Current Everyday Smoker. [id number] Cigarette Frequency: 5 - 10 per day Advised to Stop: Yes MEDICAL HISTORY Diabetes: Yes Diabetes Type: Gestational Diabetes Blood Transfusion: No Pulmonary Disease (Asthma, TB): No Breast Disease: No Hypertension: No Cabin Cleaner Surgery: No Heart Disease: No Hosp/Surgery: Yes Autoimmune Disorder: No Anesthetic Complications: No Kidney Disease: No Abnormal Pap Smear: Yes Neuro/Epilepsy: No Psychiatric Disorders: Yes Other Medical Diseases: No Hepatitis/Liver Disease: No Significant Family History: No Varicosities/Phlebitis: No Trauma/Violence : No Thyroid Dysfunction: No Medical History Comments: nicotine dependence, UTIs, childbirth x2, bipolar, depression, anxiety, abnormal pap 2012 and 2018 INFECTIOUS HISTORY Gonorrhea: No Genital Herpes: No Chlamydia: No Tuberculosis: No Syphilis: No Hepatitis: No HIV/AIDS Exposure: No Rash or Viral Illness: No HPV: Yes Infectious History Comments: + Trich this MAGDALENA 10/26/18 , Pap 09/2018 HPV+,colpo PHYSICAL EXAM General: Normal HEENT: Normal Neurologic: Normal Thyroid: Normal Heart: Normal Lungs: Normal Breast: Deferred Back: Normal Abdomen: Normal Genitourinary Exam: Normal Extremities: Normal DTRs: Normal Pelvic Type: Adequate FETUS A EGA: 37.6 PLANS FOR LABOR AND DELIVERY Labor and Delivery: None Pain Management: Epidural Feeding Preference: Both Benefit of Breast Feed Discussed: Yes Circumcision: Yes INFORMED CONSENT Signature: with User ID: [email or web address]
[2019-04-25 07:50] LABS: URINE AMPHETAMINES SCREEN NEGATIVE; URINE BARBITURATES SCREEN NEGATIVE; URINE BENZODIAZEPINES SCREEN NEGATIVE; URINE COCAINE SCREEN NEGATIVE; URINE METHADONE SCREEN NEGATIVE; URINE PHENCYCLIDINE SCREEN NEGATIVE
[2019-04-25 07:55] LABS: URINE MARIJUANA (THC) SCREEN UNCONFIRMED POSITIVE
[2019-04-25 09:08] LABS: CHLAM PCR NOT DETECTED (NOT DETECT)
--- NOTE | 2019-04-25 09:58 | Delivery Summary ---
Del Sum A-C Datetime Report Generated by CPN: 04/25/2019 09:57 DELIVERY PERSONNEL DELIVERY PERSONNEL: [id number] Delivery Doctor:: Danyel Paris MD Labor and Delivery Nurse:: Faith Wright RNpetrography teacher Nurse:: Carolina Novak RN Nursery Nurse:: Sean Lou RN Welding Rod Coater/VIDEO GAMES STORYWRITER: Krysta Aly, CLIN APPLICATION SPECIALIST MATERNAL INFORMATION Delivery Anesthesia: None Medications After Delivery: Pitocin Bolus-Please Comment; Pitocin Drip 20 Units/1000ml NSS Meds After Delivery Comment: Pitocin 20 units in 1000mL NS open bolus Delivery QBL: 100 Maternal Complications: Precipitous Labor (<3hrs) LABOR SUMMARY EDC: 05/10/2019 00:00 No. Babies in Womb: 1 Attempted: Yes Labor Anesthesia: None LABOR INFORMATION Reason for Induction: Not Applicable Onset of Labor: 04/25/2019 03:30 Complete Dilatation: 04/25/2019 10:21 Oxytocin: N/A Group B Beta Strep: neg Steroids Given: None Reason Steroids Not Administered: Not Applicable MEMBRANES Membranes Rupture Method: Spontaneous Rupture of Membranes: 04/25/2019 03:30 Length of Rupture (hr): 3.93 Amniotic Fluid Color: Clear Amniotic Fluid Amount: Moderate Amniotic Fluid Odor: Normal STAGES OF LABOR Stage 1 hr: 6 Stage 1 min: 51 Stage 2 hr: -2 Stage 2 min: -55 Stage 3 hr: 0 Stage 3 min: 2 Total Time in Labor hr: 3 Total Time in Labor min: 58 VAGINAL DELIVERY Episiotomy: None Laceration #1: None Laceration Extension #1: N/A Laceration Repair: Not Applicable CSECTION DELIVERY Primary Indication: N/A Secondary Indication: N/A CSection Incision: N/A BABY A INFORMATION Delivery Date/Time: 04/25/2019 07:26 Method of Delivery: Vaginal Born in Route : No : N/A Forceps: N/A Vacuum Extraction: N/A Shoulder Dystocia : No PRESENTATION/POSITION BABY A Presentation: Cephalic Cephalic Presentation: Vertex Vertex Position: Left Occipital Posterior Breech Presentation: N/A PLACENTA INFORMATION BABY A Placenta Delivery Time : 04/25/2019 07:28 Placenta Method of Delivery: Spontaneous Placenta Status: Delivered SCORES BABY A Heart Rate 1 min: >100 bpm Resp Effort 1 min: Good Cry Reflex Irritability 1 min: Cough or Sneeze or Pulls Away Muscle Tone 1 min: Active Motion Color 1 min: Body Elwin, Extremities Blue SCORE 1 MIN: 9 Heart Rate 5 min: >100 bpm Resp Effort 5 min: Good Cry Reflex Irritability 5 min: Cough or Sneeze or Pulls Away Muscle Tone 5 min: Active Motion Color 5 min: Body Elwin, Extremities Blue SCORE 5 MIN: 9 INFANT INFORMATION BABY A Gestational Age at Delivery: 37.6 Gestational Status: Early Term- 37- 38.6 Weeks Infant Outcome : Liveborn Condition : Stable Infant Sex: Male IDENTIFICATION BABY A Infant Verification Date/Time: 04/25/2019 07:54 ID Band Number: [id number] Mother's Name Verified: Yes RN Verifying : Carmencita WrightSERENA Additional Verifying Personnel: Jose Eduardo Novak RN WEIGHT/LENGTH BABY A Birthweight (gm): 3100 Infant Weight (lb): 6 Infant Weight (oz): 13 Length (in): 20.00 Length (cm): 50.80 CORD INFORMATION BABY A No. Cord Vessels: 3 Nuchal Cord : N/A Cord Blood Taken: Yes-For Eval (Mom's Blood Type - or O+) Infant Suction: None ASSESSMENT BABY A Infant Complications: None Physical Findings at Delivery: Within Normal Limits Skin to Skin: Yes Skin to Skin Time (min): 30 Infant Care By: Coral Lou, RN Transferred To: Remains with Mother BABY B INFORMATION : N/A SIGNATURES Signature: with User ID: [email or web address]
[2019-04-25] MEDS ORDERED: INFLUENZA QUAD (6MOS+) 2019-20 VAC 0.5 ML SYR IM ONE (12:51)
[2019-04-25] MEDS: IBUPROFEN 800 MG TABLET PO SCH ×2 (13:33→21:46)
[2019-04-25] MEDS: FERROUS SULFATE 325 MG TABLET PO SCH ×2 (15:07→18:37)
[2019-04-25] MEDS: FAMOTIDINE 20 MG TABLET PO SCH ×2 (15:07→21:46)
[2019-04-25] MEDS: PRENATAL VITAMIN W DHA CAPSULE PO SCH (15:07)
[2019-04-25] MEDS: DOCUSATE SODIUM 100 MG CAPSULE PO SCH ×2 (15:07→18:37)
[2019-04-25] MEDS: SENNOSIDES/DOCUSATE 8.6-50 MG 1 EACH TABLET PO SCH (15:08)
[2019-04-25] MEDS: ALBUTEROL SULFATE HFA (90 MCG/PUFF) 200 PUFF/8.5 GM MDI IH SCH ×2 (18:37→21:58)
[2019-04-26] MEDS: IBUPROFEN 800 MG TABLET PO SCH ×3 (06:31→22:15)
[2019-04-26] MEDS: ALBUTEROL SULFATE HFA (90 MCG/PUFF) 200 PUFF/8.5 GM MDI IH SCH ×6 (06:32→22:16)
[2019-04-26 07:06] LABS: HEMATOCRIT 30.9 % (36.0-47.0); HEMOGLOBIN 10.5 g/dL (12.0-15.5); MEAN CORPUSCULAR HEMOGLOBIN 30.3 pg (27.0-33.4); MEAN CORPUSCULAR HGB CONC 33.9 g/dL (32.0-36.0); MEAN CORPUSCULAR VOLUME 89 fl (80-97); PLATELET COUNT 224 10^3/uL (150-450); RED BLOOD COUNT 3.46 10^6/uL (3.72-5.28)
--- NOTE | 2019-04-26 08:46 | PDOC PROGRESS REPORT ---
Subjective-OB Progress Note for:: 04/26/19 Subjective: Pt in room next door visiting another patient, no c/o Physical Exam (OB) Vital Signs: Temp Pulse Resp BP Pulse Ox 98.2 F 74 16 122/78 100 04/26/19 07:39 04/26/19 07:39 04/26/19 07:39 04/26/19 07:39 04/26/19 07:39 Intake & Output 04/25/19 04/26/19 04/27/19 06:59 06:59 06:59 Weight 80.4 kg - Lochia Lochia Amount: Scant < 10 ml Lochia Color: Rubra/Red - Abdomen Description: Soft, Round Hernia Present: No Fundal Description: Firm, Midline Fundal Height: u/u - u/2 Objective-Diagnostic Laboratory: 04/26/19 06:30 04/26/19 06:30 WBC 14.0 H RBC 3.46 L Hgb 10.5 L Hct 30.9 L MCV 89 MCH 30.3 MCHC 33.9 RDW 14.0 Plt Count 224 Assessment and Plan(PN) - Assessment and Plan (1) Mild tetrahydrocannabinol (THC) abuse Is this a current diagnosis for this admission?: Yes (2) Normal vaginal delivery Is this a current diagnosis for this admission?: Yes - Time Spent with Patient Time with patient: Less than 15 minutes Medications reviewed and adjusted accordingly: Yes - Disposition Anticipated Discharge: Home Within: within 24 hours
[2019-04-26] MEDS: FAMOTIDINE 20 MG TABLET PO SCH ×2 (09:47→22:15)
[2019-04-26] MEDS: SENNOSIDES/DOCUSATE 8.6-50 MG 1 EACH TABLET PO SCH (09:47)
[2019-04-26] MEDS: DOCUSATE SODIUM 100 MG CAPSULE PO SCH ×2 (09:47→17:49)
[2019-04-26] MEDS: PRENATAL VITAMIN W DHA CAPSULE PO SCH (09:47)
[2019-04-26] MEDS: FERROUS SULFATE 325 MG TABLET PO SCH ×2 (09:47→17:49)
[2019-04-27] MEDS: ALBUTEROL SULFATE HFA (90 MCG/PUFF) 200 PUFF/8.5 GM MDI IH SCH ×4 (02:14→14:05)
[2019-04-27] MEDS: IBUPROFEN 800 MG TABLET PO SCH ×2 (05:20→14:05)
--- NOTE | 2019-04-27 09:09 | PDOC DISCHARGE SUMMARY ---
Impression - Admit/DC Date/PCP Admission Date/Primary Care Provider: 04/25/19 06:49 RY COLEMAN MD Discharge Date: 04/27/19 - PP Day #2, doing well, B+ , Rubella Immune, Bottlefeeding, Hx depression, pt states she will start back on her Latuda medication. - Discharge Diagnosis (1) GDM (gestational diabetes mellitus) Is this a current diagnosis for this admission?: Yes (2) History of depression Is this a current diagnosis for this admission?: Yes - Additional Information Resuscitation Status: Full Code Discharge Diet: As Tolerated, Regular Discharge Activity: Activity As Tolerated, No Lifting Over 10 Pounds, Pelvic Rest Referrals: RY COLEMAN MD [Primary Care Provider] - Prescriptions: Ibuprofen [Motrin 800 mg Tablet] 800 mg PO Q8 #60 tablet Home Medications: Vits96/Iron Fum/Folic [ Tablet] 1 each PO DAILY 03/01/19 Albuterol Sulfate [Albuterol Sulfate Hfa] 2 puff IH Q4 04/12/19 Ibuprofen [Motrin 800 mg Tablet] 800 mg PO Q8 #60 tablet 04/27/19 HPI Reason(s) for Admission: Onset of Labor, Gestional Diabetes Procedures: NST, Ultrasound Intrapartum Procedure(s): Spontaneous Vaginal Delivery Hospital Course Hospital Course: routine Results Laboratory Results: WBC 14.0 10^3/uL (4.0-10.5) H 04/26/19 06:30 RBC 3.46 10^6/uL (3.72-5.28) L 04/26/19 06:30 Hgb 10.5 g/dL (12.0-15.5) L 04/26/19 06:30 Hct 30.9 % (36.0-47.0) L 04/26/19 06:30 MCV 89 fl (80-97) 04/26/19 06:30 MCH 30.3 pg (27.0-33.4) 04/26/19 06:30 MCHC 33.9 g/dL (32.0-36.0) 04/26/19 06:30 RDW 14.0 % (11.5-14.0) 04/26/19 06:30 Plt Count 224 10^3/uL (150-450) 04/26/19 06:30 Lymph % (Auto) 30.4 % (13-45) 04/25/19 06:53 [place] % (Auto) 8.9 % (3-13) 04/25/19 06:53 Eos % (Auto) 0.7 % (0-6) 04/25/19 06:53 Baso % (Auto) 0.4 % (0-2) 04/25/19 06:53 Absolute Neuts (auto) 7.5 10^3/uL (1.7-8.2) 04/25/19 06:53 Absolute Lymphs (auto) 3.8 10^3/uL (0.5-4.7) 04/25/19 06:53 Absolute Monos (auto) 1.1 10^3/uL (0.1-1.4) 04/25/19 06:53 Absolute Eos (auto) 0.1 10^3/uL (0.0-0.6) 04/25/19 06:53 Absolute Basos (auto) 0.1 10^3/uL (0.0-0.2) 04/25/19 06:53 Seg Neutrophils % 59.6 % (42-78) 04/25/19 06:53 Urine Color YELLOW 04/25/19 06:45 Urine Appearance CLOUDY 04/25/19 06:45 Urine pH 6.0 (5.0-9.0) 04/25/19 06:45 Ur Specific [place] 1.016 04/25/19 06:45 Urine Protein 100 mg/dL (NEGATIVE) H 04/25/19 06:45 Urine Glucose (UA) NEGATIVE mg/dL (NEGATIVE) 04/25/19 06:45 Urine Ketones NEGATIVE mg/dL (NEGATIVE) 04/25/19 06:45 Urine Blood LARGE (NEGATIVE) H 04/25/19 06:45 Urine Nitrite NEGATIVE (NEGATIVE) 04/25/19 06:45 Urine Bilirubin NEGATIVE (NEGATIVE) 04/25/19 06:45 Urine Urobilinogen NEGATIVE mg/dL (<2.0) 04/25/19 06:45 Ur Leukocyte Esterase NEGATIVE (NEGATIVE) 04/25/19 06:45 Urine Ascorbic Acid NEGATIVE (NEGATIVE) 04/25/19 06:45 Urine Opiates Screen NEGATIVE 04/25/19 06:45 Urine Methadone Screen NEGATIVE 04/25/19 06:45 Ur Barbiturates Screen NEGATIVE 04/25/19 06:45 Ur Phencyclidine Scrn NEGATIVE 04/25/19 06:45 Ur Amphetamines Screen NEGATIVE 04/25/19 06:45 U Benzodiazepines Scrn NEGATIVE 04/25/19 06:45 Urine Cocaine Screen NEGATIVE 04/25/19 06:45 U Marijuana (THC) Screen UNCONFIRMED POSITIVE 04/25/19 06:45 RPR NONREACTIVE (NONREACTIVE) 04/25/19 06:53 Chlamydia DNA (PCR) NOT DETECTED (NOT DETECT) 04/25/19 06:45 N.gonorrhoeae DNA (PCR) NOT DETECTED (NOT DETECT) 04/25/19 06:45 Blood Type B POSITIVE 04/25/19 06:53 Antibody Screen NEGATIVE 04/25/19 06:53 Plan Health Concerns: watch for PP depression, check FSBS to assess for continued Diabetes issues Plan of Treatment: d/c to home, f/up with [facility] in 4 wks for PP check. f/up with counselor if experiencing PP depression Time Spent: Less than 30 Minutes
[2019-04-27] MEDS: PRENATAL VITAMIN W DHA CAPSULE PO SCH (09:19)
[2019-04-27] MEDS: DOCUSATE SODIUM 100 MG CAPSULE PO SCH (09:19)
[2019-04-27] MEDS: FAMOTIDINE 20 MG TABLET PO SCH (09:20)
[2019-04-27] MEDS: FERROUS SULFATE 325 MG TABLET PO SCH (09:20)
[2019-04-27] MEDS: SENNOSIDES/DOCUSATE 8.6-50 MG 1 EACH TABLET PO SCH (09:20)
[2019-04-27 11:11] VITALS: BP 122/78
== END 2019-04-27 17:10 | disposition home or self-care (01) | DRG 806 ==
LOC: LC 06:32 → LR 06:49 → 2S 10:16
PROVIDERS: ADMIT Obstetrics & Gynecology Gynecology; ATTEND Obstetrics & Gynecology Gynecology
PROC: 10E0XZZ Delivery of Products of Conception, External Approach (ICD-10-PCS; principal; 2019-04-25)
PROC: 3E02340 Introduction of Influenza Vaccine into Muscle, Percutaneous Approach (ICD-10-PCS; 2019-04-27)
DX: O24.420 Gestational diabetes mellitus in childbirth, diet controlled (principal); O99.324 Drug use complicating childbirth; Z37.0 Single live birth; O99.334 Smoking (tobacco) complicating childbirth; F17.210 Nicotine dependence, cigarettes, uncomplicated; O99.344 Other mental disorders complicating childbirth; F12.90 Cannabis use, unspecified, uncomplicated; F31.9 Bipolar disorder, unspecified; F41.9 Anxiety disorder, unspecified; O62.3 Precipitate labor; Z3A.37 37 weeks gestation of pregnancy; Z79.51 Long term (current) use of inhaled steroids; Z23 Encounter for immunization
CPT/HCPCS: 36415; 80307; 80349; 81005; 85025; 85027; 86592; 86850; 86900; 86901; 87491; 87591; 90686; 90715; G0480; J2590; J3490

== ENCOUNTER 2019-05-24 08:51 | Emergency (ER) | payer MEDICAID ==
[2019-05-24 09:08] VITALS: BP 153/92
--- NOTE | 2019-05-24 10:12 | ER Document Report ---
HPI - HPI Time Seen by Provider: 05/24/19 10:05 Pain Level: Denies Context: Patient is a 33-year-old female who presents emergency department with a chief complaint of laceration. Patient reports around 7 PM last night she was opening a can of peas when she cut the base of her left thumb. Patient reports her tetanus shot is up-to-date. Patient denies numbness or tingling distal to the injury. Patient does report tenderness to the area. Patient reports that it did initially bleed but has subsided. Patient reports this is more of a skin flap. - REPRODUCTIVE Reproductive: DENIES: : - MUSCULOSKELETAL Musculoskeletal: REPORTS: Extremity pain - left thumb Past Medical History - General Information source: Patient - Social History Smoking Status: Current Every Day Smoker Chew tobacco use (# tins/day): No Frequency of alcohol use: Occasional Drug Abuse: Marijuana Lives with: Family Family History: Reviewed & Not Pertinent Patient has suicidal ideation: No Patient has homicidal ideation: No - Past Medical History Cardiac Medical History: Reports: None Denies: Hx Hypertension - pt denies Pulmonary Medical History: Reports: None EENT Medical History: Reports: None Neurological Medical History: Reports: None Endocrine Medical History: Reports: None Renal/ Medical History: Reports: None. Denies: Hx Peritoneal Dialysis Malignancy Medical History: Reports: None GI Medical History: Reports: None Musculoskeletal Medical History: Reports None Skin Medical History: Reports None Psychiatric Medical History: Reports: Hx Anxiety, Hx Depression Traumatic Medical History: Reports: None Infectious Medical History: Reports: None Surgical Hx: Negative - Immunizations Immunizations up to date: Yes Hx Diphtheria, Pertussis, Tetanus Vaccination: Yes Vertical Provider Document - CONSTITUTIONAL Agree With Documented VS: Yes Exam Limitations: No Limitations General Appearance: No Apparent Distress - INFECTION CONTROL TRAVEL OUTSIDE OF THE [place] IN LAST 30 DAYS: No - HEENT HEENT: Atraumatic, Normal ENT Exam, Normocephalic, PERRLA - NECK Neck: Normal Inspection - RESPIRATORY Respiratory: Breath Sounds Normal, No Respiratory Distress - CARDIOVASCULAR Cardiovascular: Regular Rate, Regular Rhythm - GI/ABDOMEN Gastrointestinal: Abdomen Soft, Abdomen Non-Tender - Air, Normal Bowel Sounds - MUSCULOSKELETAL/EXTREMETIES Musculoskeletal/Extremeties: FROM - NEURO Level of Consciousness: Awake, Alert, Appropriate - DERM Integumentary: Warm - Left hand, Dry, Laceration Notes: Patient has a U-shaped skin flap noted to the palmar aspect of the base of the left thumb. There is no active bleeding. Patient has good flexion and extension of the left thumb. The skin flap is superficial. Patient has less than 2-second cap refill on all digits of the left hand. Patient has a +2 palpable radial pulse. Course - Re-evaluation Re-evalutation: 05/24/19 10:11 Will soak left hand in Betadine and saline. Will place Steri-Strips over the wound. I did inform the patient that since this is a very superficial skin flap sutures are not appropriate as the tension will pull through the skin. 05/24/19 11:10 Left hand superficial laceration was soaked in Betadine and saline for 20 minutes. Patient tolerated well. I did clean the wound copiously with saline. 5 Steri-Strips were placed over the wound. Nonstick dressing was applied with gauze. Patient given strict return precautions. No active bleeding noted from the wound. - Vital Signs Vital signs: Temp Pulse Resp BP Pulse Ox 98.5 F 67 16 153/92 H 100 05/24/19 09:05 05/24/19 09:05 05/24/19 09:05 05/24/19 09:05 05/24/19 09:05 Discharge - Discharge Clinical Impression: Laceration of left thumb Qualifiers: Encounter type: initial encounter Damage to nail status: without damage Foreign body presence: without foreign body Qualified Code(s): S61.012A - Laceration without foreign body of left thumb without damage to nail, initial encounter Condition: Stable Disposition: HOME, SELF-CARE Additional Instructions: *Today was in the emergency department for a left thumb laceration. This was cleansed appropriately and Steri-Strips were applied. The Steri-Strips will fall off on their own within the next week. Please remove the dressing later today and at least once daily to monitor for signs of infection. Look for redness that starts to streak up the hand, foul-smelling drainage, fever or any new or worsening symptoms. Take Tylenol and ibuprofen as needed for pain. Forms: Return to Work Referrals: RY COLEMAN MD [Primary Care Provider] - Follow up as needed
== END 2019-05-24 11:09 | disposition home or self-care (01) ==
LOC: ER 08:51
DX: S61.012A Laceration without foreign body of left thumb without damage to nail, initial encounter (principal); W26.8XXA Contact with other sharp object(s), not elsewhere classified, initial encounter; F17.200 Nicotine dependence, unspecified, uncomplicated
CPT/HCPCS: 99282